=== PATIENT | male | born 1930 | race Caucasian/White ===

== ENCOUNTER → 2018-10-17 14:23 | Outpatient (CLI) | payer MEDICARE, OTHER | END | disposition home or self-care (01) | LOC: D.LAB 14:23 | PROVIDERS: ATTEND Urology | DX: N40.0 Benign prostatic hyperplasia without lower urinary tract symptoms (principal) ==

== ENCOUNTER 2018-11-15 05:35 | Day surgery (SDC) | payer MEDICARE, OTHER ==
--- NOTE | 2018-11-13 09:57 | NUR ---
DR. GARG NOTIFIED AND REVIEWED PT'S BEHAVIOR AND ASSESSMENT RESULTS. PT IS A LOW RISK PER DR. GARG. DR. GARG STATED TO GIVE RESOURCES TO PT AT TIME OF DISCHARGE. NO FURTHER ORDERS AT THIS TIME. RESOURCES REVIEWED WITH PT AND SHE VERBALIZED UNDERSTANDING.
[2018-11-13 10:30] LABS: BASOPHILS 0.5 % (0-2); EOSINOPHILS 5.9 % (0-7); HEMATOCRIT 37.2 % (42.0-54.0); HEMOGLOBIN 12.3 g/dL (13.5-17.5); IMMATURE GRANULOCYTES 0.2 % (0-5); LYMPHOCYTES 23.2 % (15-50); MCH 31.8 pg (26.0-34.0); MCHC 33.1 g/dL (31.0-37.0); MCV 96.1 fL (80.0-100.0); MEAN PLATELET VOLUME 10.5 fL (7.4-10.4); MONOCYTES 8.4 % (2-11); NEUTROPHILS 61.8 % (40-80); PLATELET COUNT 187 10x3/uL (130-400); RBC 3.87 10x6/uL (4.20-6.10); RDW 13.2 % (11.5-14.5); WBC 6.4 10x3/uL (4.8-10.8)
[2018-11-13 10:42] LABS: CALC OSMOLALITY 290 mosm/kg (275-300); CALCIUM 8.6 mg/dL (8.5-10.1); CARBON DIOXIDE 32.2 mmol/L (21.0-32.0); CHLORIDE - SERUM 107 mmol/L (98-107); GLUCOSE 164 mg/dL (74-106); POTASSIUM - SERUM 4.2 mmol/L (3.5-5.1); SODIUM 143 mmol/L (136-145); UREA NITROGEN 17 mg/dL (7-18); eGFR NON AFRICAN AMERICAN 75 mL/min (90-120)
[~2018-11-15] VITALS: Ht 167.6 cm; Wt 78.0 kg
[~2018-11-15 05:35] MED LIST: ACETAMINOPHEN500 M1 PO; AREDS; BAYER CHEWABLE81 MG PO; CALCIUM 500 +1 EAC3 PO; CENTRUM MEN'S1 EACH PO; CRESTOR10 MG PO; IMODIUM2 MG PO; LANOXIN125 MCG PO; OMEPRAZOLE40 MG PO; TOPROL XL50 MG PO; UROXATRAL10 MG PO; ZYRTEC10 MG PO
[2018-11-15 06:22] VITALS: BP 147/60; Ht 167.6 cm; Wt 78.0 kg
--- NOTE | 2018-11-15 08:50 | NUR ---
REC'D FROM RECOVERY. NO FAMILY AT BEDSIDE. AMBULATED TO BATHROOM AND VOIDED. FL DIET BROUGHT TO PATIENT. PATIENT IS GOING TO CALL HIS DAUGHTER FOR TRANSPORTATION.
--- NOTE | 2018-11-15 09:15 | NUR ---
DR HERNANDEZ SPOKE WITH PATIENT.
--- NOTE | 2018-11-15 09:20 | NUR ---
EATING FL DIET. NO C/O VOICED.
--- NOTE | 2018-11-15 09:25 | NUR ---
TOLERATED FL DIET. IV DC'D WITH CATHETER INTACT. WRITTEN AND VERBAL DC INSTRUCTIONS GIVEN TO PATIENT. VERBALIZED UNDERSTANDING. WAITING FOR RIDE TO GET HERE.
--- NOTE | 2018-11-15 10:05 | NUR ---
DC'D HOME WITH FAMILY VIA PRIVATE VEWHICLE. STABLE AT TIME OF DC.
--- NOTE | 2018-11-15 12:00 | OP ---
PATIENT NAME: ARACELY CAMPBELL MEDICAL RECORD: [id number] :[birth year] LOCATION:D.[facility] ADMISSION DATE: SURGEON: MARTÍNEZ HERNANDEZ MD DATE OF OPERATION: 11/15/2018 SURGEON: Martínez Hernandez MD ANESTHESIA: TIVA by Haily Mtz CRNA. DIAGNOSES: Elevated PSA of 40.53 on 10/17/2018. Bladder outlet obstruction. PROCEDURE: Cystoscopy, transrectal ultrasound, and prostate biopsy. FINDINGS: On cystoscopy, bilateral lateral lobe obstruction with no median lobe of the prostate. Heavily trabeculated bladder with no bladder tumors. Single ureteral orifices bilaterally. The transrectal ultrasound 44 gram prostate with intraprostatic stones and no hypoechoic areas. SPECIMENS: Prostate biopsy cores. BLOOD LOSS: None. CLINICAL HISTORY: This is an 88-year-old male, who was referred with bladder outlet obstruction symptoms and he wanted to have the UroLift procedure done. His IPPS score is 20 and quality of life score is 5 and he has been on Uroxatral for 10 years. He has not had a PSA level drawn in 6 years and I deneen a PSA level on him. It came back quite elevated at 40.53. On digital rectal examination, he has a small feeling prostate, but it is hard and irregularly nodular. He comes today for cystoscopy to evaluate the prostatic urethra and also for a prostate biopsy. He is not allergic to any medications. He was given Ancef utilization specialist to the OR. DESCRIPTION OF PROCEDURE: The patient was given IV sedation. He was then placed into the lithotomy position and prepped and draped. A 17-Occitan cystoscope with 30-degree lens was used for visualization. Findings are as outlined above. There are no penile urethral strictures. The bladder was then emptied through the cystoscope sheath and the scope was removed. The transrectal ultrasound probe was then introduced. We obtained prostate size measurements. The prostate is not very wide or long, but it is very tall. Overall, prostate size was estimated at 44 grams. Sextant biopsies were obtained with at least 3 cores from each sextant. Once all the specimens were obtained, the procedure was terminated. The patient was brought back to the recovery room. I will see him in followup next week to review the pathology results with him. TRANSINT:[id number] Voice Confirmation ID: [id number] DOCUMENT ID: [id number] OPERATIVE REPORT [id number] ARACELY CAMPBELL ROBERT S MD at 1200 CC: [id number] DICTATION DATE: 11/15/18816 CAKE WINDER: 11/15/18 1148 [facility] 11/15/18 [id number] [place] [address]
== END 2018-11-15 10:05 | disposition home or self-care (01) ==
LOC: D.OPS 05:35 → D.PAN 08:30 → D.OPS 09:30
PROVIDERS: Anesthesiology; ATTEND Urology
DX: N13.9 Obstructive and reflux uropathy, unspecified (principal); R97.20 Elevated prostate specific antigen [PSA]

== ENCOUNTER → 2018-11-26 08:03 | Outpatient (CLI) | payer MEDICARE, OTHER ==
[2018-11-15 06:22] VITALS: BMI 27.8
== END | disposition home or self-care (01) ==
LOC: D.NM 08:03
PROVIDERS: ATTEND Urology
DX: C61 Malignant neoplasm of prostate (principal)

== ENCOUNTER 2019-01-08 08:55 | Outpatient (CLI) | payer MEDICARE, OTHER ==
[~2019-01-08] VITALS: Ht 167.6 cm; Wt 73.9 kg
[2019-01-08 09:11] LABS: BASOPHILS 0.2 % (0-2); EOSINOPHILS 1.2 % (0-7); HEMATOCRIT 37.3 % (42.0-54.0); HEMOGLOBIN 12.8 g/dL (13.5-17.5); IMMATURE GRANULOCYTES 0.2 % (0-5); LYMPHOCYTES 16.8 % (15-50); MCH 32.2 pg (26.0-34.0); MCHC 34.3 g/dL (31.0-37.0); MEAN PLATELET VOLUME 10.8 fL (7.4-10.4); MONOCYTES 9.8 % (2-11); NEUTROPHILS 71.8 % (40-80); PLATELET COUNT 211 10x3/uL (130-400); RBC 3.97 10x6/uL (4.20-6.10); RDW 13.4 % (11.5-14.5); WBC 12.8 10x3/uL (4.8-10.8)
[2019-01-08 09:33] LABS: CALC OSMOLALITY 261 mosm/kg (275-300); CALCIUM 8.2 mg/dL (8.5-10.1); CARBON DIOXIDE 32.8 mmol/L (21.0-32.0); CHLORIDE - SERUM 104 mmol/L (98-107); POTASSIUM - SERUM 3.9 mmol/L (3.5-5.1); SODIUM 129 mmol/L (136-145); UREA NITROGEN 22 mg/dL (7-18); eGFR NON AFRICAN AMERICAN 75 mL/min (90-120)
[2019-01-08 09:34] LABS: GLUCOSE 96 mg/dL (74-106)
[2019-01-08 09:35] LABS: APTT 26.4 SECONDS (22.8-39.4)
[2019-01-08] MEDS ORDERED: PREDNISONE10 MG PO (09:48)
[2019-01-08] MEDS ORDERED: ZYTIGA250 MG PO (09:49)
[2019-01-08 09:53] VITALS: Ht 167.6 cm; Wt 73.9 kg
[2019-01-08 10:21] LABS: INR 0.94 (0.85-1.17); PROTIME 12.1 SECONDS (11.6-15.0)
--- NOTE | 2019-01-08 13:39 | NUR ---
VITAL SIGNS DOCUMENTED TO POST PROCEDURE CHART
--- NOTE | 2019-01-08 16:43 | NUR ---
1330 PCXR DONE AT BEDSIDE 1350 RECEIVED CALL FROM RADIOLOGY THAT PT HAS A SMALL PNEUMOTHORAX. PT IS TO REMAIN NPO AND A REPEAT PCXR TO BE REPEATED AT 1530. 1530 REPEAT PCXR DONE AT BEDSIDE 1550 ALMOND GRINDER HERE TO SEE PT. STATES THAT THERE IS SOME IMPROVEMENT IN PNEUMOTHORAX. OK TO DISCHARGE PT HOME PER DR GUZMÁN. PT IS AWARE THAT IF HE HAS CHEST PAIN OR SOB TO COME TO [facility] ED. PT VOICES UNDERSTANDING OF THIS INSTRUCTION. A FOLLOWUP CXR IS SCHEDULED FOR 01-10-19. PT STATES HE WILL RETURN FOR THIS XRAY. 1602 IV DC'D. CATHETER INTACT. PRESSURE APPLIED UNTIL BLEEDING CEASED. BANDAID APPLIED.
== END 2019-01-08 16:17 | disposition home or self-care (01) ==
LOC: D.CT 08:55
PROVIDERS: Radiology Diagnostic Radiology; ATTEND Internal Medicine Medical Oncology
DX: R91.8 Other nonspecific abnormal finding of lung field (principal)

== ENCOUNTER 2019-01-10 07:49 | Outpatient (CLI) | payer MEDICARE, OTHER ==
[~2019-01-10] VITALS: Ht 167.6 cm; Wt 75.0 kg
[~2019-01-10 07:49] MED LIST changes: +PREDNISONE10 MG PO; +ZYTIGA250 MG PO
--- NOTE | 2019-01-10 08:30 | NUR ---
PATIENT I&O CATH COMPLETE AND SENT TO LAB. TOLERATED WITH SMALL AMOUNT OF PAIN. IV INTACT. CALL LIGHT WITHIN REACH.
[2019-01-10 11:04] VITALS: BP 166/62; BMI 26.7
[2019-01-10 17:23] VITALS: BP 148/52
[2019-01-10 17:27] VITALS: Ht 167.6 cm; Wt 75.0 kg
--- NOTE | 2019-01-10 18:45 | NUR ---
PATIENT IN BED WITH IV INTACT. NO COMPLAINTS OR SIGNS OF DISTRESS. CALL LIGHTW ITHIN REACH. CT INTACT.
--- NOTE | 2019-01-10 18:45 | NUR ---
PATIENT IN BED WITH IV INTACT. NO COMPLAINTS OR SIGNS OF DISTRESS. EYES CLOSED RESTING QUIETLY. CALL LIGHTW ITHIN REACH.
--- NOTE | 2019-01-10 19:15 | NUR ---
PT ALERT AND ORIENTED WITH DAUGHTER AT BEDSIDE. PT INQUIRING SOON THIS NURSE ENTERED NEW ABOUT TIME FRAME OF ADMISSION. PT HAS CHEST TUBE WITH INSERTION TO TH LEFT UPPER SIDE. SUCTION IS ON AND MINIMAL FLUID NOTED DRAINING INTO CHAMBERS. LUNGS AUSCULTATED AND PRESENT WITH BILATERAL CLEAR UPPER LOBES AND DIMINSHED SOUNDS IN THE BILATERAL LOWER LOBES. PATIENT STATES THAT THE CHEST TUBE CAUSES AN "UNCOMFORTABLE" FEELING AT TIMES. DENIES FURTHER ISSUES. ASSISTED PATIENT TO BATHROOM. ULTIMATELY ABLE TO AMBULATE INDEPENDENTLY BUT ASSISTED WITH CHEST TUBE AND OXYGEN. NASAL CANNULA 2L AT THIS TIME. DENIES FURTHER ISSUES. CALL LIGHT IN REACH OF PATIENT. CPOC.
[2019-01-10 20:00] VITALS: BP 174/57
[2019-01-11] VITALS: BP 138/57
--- NOTE | 2019-01-11 03:00 | NUR ---
I have reviewed this patient and I concur with the Shift Assessment completed by the Licensed Practical Nurse today this shift.
[2019-01-11 04:00] VITALS: BP 133/64
--- NOTE | 2019-01-11 08:00 | NUR ---
PATIENT IN BED WITH IV INTACT. NO COMPLAINTS OR SIGNS OF DISTRESS. CT TO 20 CM SUCTION. CALL LIGHT WITHIN REACH.
[2019-01-11 08:55] VITALS: BP 157/59
[2019-01-11 12:52] VITALS: BP 131/62
--- NOTE | 2019-01-11 14:00 | NUR ---
PATIENT IN BED WITH IV INTACT. CT TO WATER SEAL. PATIENT HAS NO COMPLAINTS OR SIGNS OF DISTRESS. CALL LIGHT WITHIN REACH.
--- NOTE | 2019-01-11 16:30 | NUR ---
PATIENT IN BED WITH CT OUT. AWAITING DC. IV INTACT. NO COMPLAINTS OR SIGNS OF DISTRESS. CALL LIGHTW ITHIN REACH.
--- NOTE | 2019-01-11 17:30 | NUR ---
PATIENT RECIEVED DC INSTRUCTIONS. VERBALIZED UNDERSTANDING. NO QUESTIONS AT THIS TIME. IV REMOVED WITH CATH TIP INTACT. AWAITING WC FOR DC. CALL LIGHT WITHIN REACH.
== END 2019-01-11 17:45 | disposition home or self-care (01) ==
LOC: D.RAD 07:49 → D.MS 13:04 → D.RAD 01-11 17:45
PROVIDERS: ATTEND Radiology Diagnostic Radiology
DX: J93.9 Pneumothorax, unspecified (principal)

== ENCOUNTER 2019-01-25 08:19 | Day surgery (SDC) | payer MEDICARE, OTHER ==
[~2019-01-25] VITALS: Ht 167.6 cm; Wt 74.8 kg
[2019-01-25 08:31] LABS: BASOPHILS 0.2 % (0-2); HEMATOCRIT 36.4 % (42.0-54.0); HEMOGLOBIN 12.4 g/dL (13.5-17.5); IMMATURE GRANULOCYTES 0.2 % (0-5); LYMPHOCYTES 18.8 % (15-50); MCH 32.5 pg (26.0-34.0); MCHC 34.1 g/dL (31.0-37.0); MCV 95.5 fL (80.0-100.0); MEAN PLATELET VOLUME 10.9 fL (7.4-10.4); MONOCYTES 9.1 % (2-11); NEUTROPHILS 70.7 % (40-80); PLATELET COUNT 207 10x3/uL (130-400); RBC 3.81 10x6/uL (4.20-6.10); RDW 13.6 % (11.5-14.5); WBC 10.2 10x3/uL (4.8-10.8)
[2019-01-25 08:45] LABS: ANION GAP 7.5 mmol/L (8-16); CARBON DIOXIDE 34.8 mmol/L (21.0-32.0); CREATININE - SERUM 1.2 mg/dL (0.6-1.3); POTASSIUM - SERUM 4.3 mmol/L (3.5-5.1)
[2019-01-25 08:49] LABS: APTT 25.8 SECONDS (22.8-39.4); INR 0.91 (0.85-1.17); PROTIME 11.8 SECONDS (11.6-15.0)
[2019-01-25] MEDS ORDERED: XARELTO20 MG PO (10:08)
[2019-01-25] MEDS ORDERED: AMIODARONE HCL200 MG PO (10:11)
[2019-01-25 10:26] VITALS: BP 186/70; Ht 167.6 cm; Wt 74.8 kg
--- NOTE | 2019-01-25 12:42 | NUR ---
PT STATES HE "FEELS MUCH BETTER" AFTER RACEMIC EPINEPHRINE UPDRAFT
--- NOTE | 2019-02-18 11:31 | OP ---
PATIENT NAME: ARACELY CAMPBELL MEDICAL RECORD: [id number] :[birth year] [facility] DATE: SURGEON: HARSHAD OQUENDO MD DATE OF OPERATION: 01/25/2019 PREOPERATIVE DIAGNOSIS: Right base of tongue mass. POSTOPERATIVE DIAGNOSIS: Right base of tongue mass. PROCEDURES: Direct laryngoscopy and biopsy of the right base of tongue. SURGEON: Harshad Oquendo MD ANESTHESIA: General orotracheal. BLOOD LOSS: 2 cc. SPECIMENS: Multiple biopsies of right base of the tongue. COMPLICATIONS: None. DISPOSITION: Recovery, stable. DESCRIPTION OF PROCEDURE: He was brought to the operating room, placed in the supine position, sedated and intubated by anesthesia. The table was turned 90 degrees. Head drape was applied. He was positioned for endoscopy. Plastic tooth guard was used to protect his gums. He was edentulous. The oral cavity and oropharynx were examined using a headlight. The base of tongue was palpated. The mass on the base of tongue was still palpable there. A Kleinsasser J laryngoscope was inserted and used to evaluate the posterior pharyngeal wall, lateral pharyngeal wall, vallecula, base of tongue, supraglottic larynx, piriforms, postcricoid area, larynx, cords, subglottis, and upper trachea. Everything was normal except for the right base of the tongue. After passing over it with laryngoscope, that area was bleeding and a little bit friable. Mucosa did not look particularly abnormal. It was raised about 5 mm and 1.5 cm around. It was palpated under direct visualization and it was the same mass that was palpable on the base of the tongue. Then, using a 4-mm upbiting cup forceps, at least half a dozen biopsies were taken of most visible raised mass, beneath it was not particularly firm, felt relatively normal. There was very little bleeding. Laryngoscope was removed. Plastic tooth guard was removed. He was awakened, extubated, and transported to recovery in good condition. No complications. TRANSINT:[id number] Voice Confirmation ID: [id number] DOCUMENT ID: [id number] HARSHAD OQUENDO MD at 1131 CC: [id number] DICTATION DATE: 01/25/19 120 DIRECTOR CLOUD TRANSFORMATION: 01/25/19 1309 [facility] 01/25/19 [facility] [address] [place] [address]
--- NOTE | 2019-02-18 11:31 | HP ---
PATIENT: ARACELY HOPPER MEDICAL RECORD: [id number] ACCOUNT: [id number] [facility]ATION:[facility] : [birth year] ADMISSION DATE: 01/25/19 PCP: RIGO HERNANDEZ HISTORY AND PHYSICAL EXAMINATION HISTORY OF PRESENT ILLNESS: Mr. Hopper is an 88-year-old male who had a PET scan for prostate cancer, had a lesion right up on the right base of the tongue. On exam in the office, there is a corresponding mass in the right base of the tongue. He is being admitted for direct laryngoscopy and biopsy of right base of tongue. PAST MEDICAL HISTORY: Includes hypertension, AFib, prostate cancer. PAST SURGICAL HISTORY: Includes appendectomy, colon resection, prostate biopsy, esophageal procedure for reflux, possibly a Brenden fundoplication. CURRENT MEDICATIONS: Include Toprol, Crestor, digoxin, omeprazole, Xarelto, alfuzosin, and Zytiga. ALLERGIES: LISINOPRIL CAUSES COUGH. PHYSICAL EXAMINATION: GENERAL: He is healthy-appearing. FACE: Normal, symmetric, no lesions. EYES: Sclerae and conjunctivae are normal. EARS: Canals and TMs are normal. NOSE: No masses, polyps, or drainage. ORAL CAVITY AND OROPHARYNX: Normal to exam; however, can palpate a lump in the right base of the tongue. On laryngoscopy, I can also see the corresponding area. It was relatively smooth, not particularly exophytic, but is definitely raised, almost crescent shaped just above the right vallecula. NECK: No masses, no adenopathy. CHEST: Clear. CARDIOVASCULAR: Regular rate and rhythm, does not seem to be in AFib today. CHEST: Clear. IMPRESSION: Right base of the tongue mass. PLAN: Direct laryngoscopy, biopsy of the right base of the tongue. TRANSINT:[id number] Voice Confirmation ID: [id number] DOCUMENT ID: [id number] BESSIE PEREZ MD at 1131 CC: [id number] DICTATION DATE: 01/23/19 1101 FURNITURE UPHOLSTERER APPRENTICE: 01/23/19 1110 [facility] 01/25/19 [place] [address]
== END 2019-01-25 14:25 | disposition home or self-care (01) ==
LOC: D.OPS 08:19 → D.PAN 10:30 → D.OPS 10:30
PROVIDERS: Anesthesiology; ATTEND Otolaryngology
DX: C01 Malignant neoplasm of base of tongue (principal); Z01.812 Encounter for preprocedural laboratory examination

== ENCOUNTER → 2019-02-05 08:11 | Outpatient (CLI) | payer MEDICARE, OTHER ==
[2019-01-25 10:26] VITALS: BMI 26.7
[~2019-02-05 08:11] MED LIST changes: +AMIODARONE HCL200 MG PO; +XARELTO20 MG PO
== END | disposition home or self-care (01) ==
LOC: D.CT 08:11
PROVIDERS: ATTEND Internal Medicine Medical Oncology
DX: R91.1 Solitary pulmonary nodule (principal); C79.51 Secondary malignant neoplasm of bone; C61 Malignant neoplasm of prostate

== ENCOUNTER → 2019-03-20 21:26 | Outpatient (CLI) | payer MEDICARE, OTHER ==
[2019-01-25 10:26] VITALS: BMI 26.7
== END | disposition home or self-care (01) ==
LOC: D.LABREF 21:26
PROVIDERS: ATTEND Urology
DX: C61 Malignant neoplasm of prostate (principal)

== ENCOUNTER 2019-06-27 09:12 | Day surgery (SDC) | payer MEDICARE, OTHER ==
[2019-06-25 11:15] LABS: BASOPHILS 0.1 % (0-2); EOSINOPHILS 0.9 % (0-7); HEMOGLOBIN 11.9 g/dL (13.5-17.5); IMMATURE GRANULOCYTES 0.2 % (0-5); LYMPHOCYTES 6.7 % (15-50); MCH 32.5 pg (26.0-34.0); MCHC 32.2 g/dL (31.0-37.0); MCV 101.1 fL (80.0-100.0); MONOCYTES 7.7 % (2-11); NEUTROPHILS 84.4 % (40-80); PLATELET COUNT 233 10x3/uL (130-400); RBC 3.66 10x6/uL (4.20-6.10); RDW 14.3 % (11.5-14.5); WBC 9.7 10x3/uL (4.8-10.8)
[2019-06-25 11:24] LABS: CALC OSMOLALITY 285 mosm/kg (275-300); CALCIUM 8.8 mg/dL (8.5-10.1); CARBON DIOXIDE 35.7 mmol/L (21.0-32.0); CHLORIDE - SERUM 106 mmol/L (98-107); GLUCOSE 127 mg/dL (74-106); POTASSIUM - SERUM 4.3 mmol/L (3.5-5.1); SODIUM 142 mmol/L (136-145); UREA NITROGEN 15 mg/dL (7-18); eGFR NON AFRICAN AMERICAN 75 mL/min (90-120)
[2019-06-25 11:28] LABS: APTT 29.7 SECONDS (22.8-39.4); INR 0.9 (0.85-1.17); PROTIME 12.1 SECONDS (11.6-15.0)
[~2019-06-27] VITALS: Ht 167.6 cm; Wt 65.8 kg
[~2019-06-27 09:12] MED LIST changes: +FLOMAX0.4 MG PO; +MEDROL8 MG PO
[2019-06-27] MEDS ORDERED: ABIRATERONE (10:08)
[2019-06-27 10:09] VITALS: BP 150/63; Ht 167.6 cm; Wt 65.8 kg
--- NOTE | 2019-06-27 15:32 | OP ---
PATIENT NAME: ARACELY CAMPBELL MEDICAL RECORD: [id number] :[birth year] LOCATION:D[facility] ADMISSION DATE: SURGEON: SAMUEL HERNANDEZ MD DATE OF OPERATION: 06/27/2019 SURGEON: Samuel Hernandez MD ANESTHESIA: TIVA by Bryon Alvarado CRNA. 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 PSA 40.53. Transrectal ultrasound shows a 44 gram prostate. IPSS is 20 and quality of life score is 5 on Uroxatral. PROCEDURE: UroLift of time 6 units. Four units were placed in box configuration around the bladder neck and 2 at the verumontanum level. FINDINGS: Obstructive bladder neck and lateral lobes of the prostate. No median lobe. Single ureteral orifices bilaterally. No bladder tumors. Trabeculated bladder. BLOOD LOSS: Minimal. 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 This was found on prostate biopsy for an elevated PSA of 40.53. Metastatic testing was positive for metastasis to the bone. He also has a left upper lobe lung lesion. 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 The prostate cancer was treated with Eligard, Zytiga, prednisone, and Xgeva. His latest PSA is now less than 1. He continues to have obstructive voiding symptoms. He has been on Uroxatral, which has not really been helping his voiding symptoms. He comes now to have the UroLift procedure done for palliation to relieve his bladder outlet obstruction. He is allergic to BACTRIM, LISINOPRIL, and LOSARTAN. He was given Levaquin IV inspector final assembly conveyor line to the OR. DESCRIPTION OF PROCEDURE: The patient was given IV sedation. He was placed into lithotomy position and prepped and draped. The UroLift cystoscope was introduced and the findings are as outlined above. At 1.5 cm distal to the bladder neck at the anterolateral sulcus on each side, one unit was placed. I then placed 1 unit on each side at the anterolateral sulcus of the verumontanum level. Looking in with the obturator, there was still obstruction at the bladder neck. I placed 2 more units 1.5 cm distal to the bladder neck at the mid urethral level. This opened up the bladder neck in a box configuration. Placing the 6 units through the prostate cause a bit of bleeding. Therefore, I inserted a 16-Romanian Rush catheter into the bladder. The balloon was inflated with 10 cc of sterile water. This will be put to bag drainage. I will see the patient in followup next week to have the catheter removed for a voiding trial. TRANSINT:[id number] Voice Confirmation ID: [id number] DOCUMENT ID: [id number] OPERATIVE REPORT [id number] ARACELY CAMPBELL ROBERT S MD at 1532 CC: [id number] DICTATION DATE: 06/27/19 1105 MARKETING DEVELOPMENT SPECIALIST: 06/27/19 1446 [facility] 06/27/19 [facility] [address] [place] [address]
== END 2019-06-27 12:54 | disposition home or self-care (01) ==
LOC: D.OPS 09:12 → D.PAN 10:25 → D.OPS 10:45 → D.PAN 11:15 → D.OPS 11:15
PROVIDERS: Anesthesiology; ATTEND Urology
DX: C61 Malignant neoplasm of prostate (principal); N40.1 Benign prostatic hyperplasia with lower urinary tract symptoms; N13.8 Other obstructive and reflux uropathy; R97.21 Rising PSA following treatment for malignant neoplasm of prostate; C02.9 Malignant neoplasm of tongue, unspecified; I48.20 Chronic atrial fibrillation, unspecified

== ENCOUNTER 2019-07-31 14:39 | Emergency (ER) | payer MEDICARE, OTHER ==
[~2019-07-31] VITALS: Ht 167.6 cm; Wt 72.7 kg
[~2019-07-31 14:39] MED LIST changes: +ABIRATERONE
[2019-07-31 14:43] VITALS: Ht 167.6 cm; Wt 72.7 kg
[2019-07-31] MEDS ORDERED: XARELTO (14:44)
[2019-07-31 17:31] VITALS: BP 167/60
== END 2019-07-31 17:32 | disposition home or self-care (01) ==
LOC: D.ER 14:39
DX: S00.83XA Contusion of other part of head, initial encounter (principal); W19.XXXA Unspecified fall, initial encounter; Y93.9 Activity, unspecified; Y92.9 Unspecified place or not applicable; S00.81XA Abrasion of other part of head, initial encounter; I48.91 Unspecified atrial fibrillation; I10 Essential (primary) hypertension; I25.2 Old myocardial infarction

== ENCOUNTER 2019-12-25 10:09 | Inpatient (IN) | payer MEDICARE, OTHER ==
[2019-12-25] VITALS (7 sets, daily range): BP systolic 111–160; BP diastolic 55–68; Ht 167.6 cm; Wt 65.9 kg
[~2019-12-25] VITALS: Ht 167.6 cm; Wt 65.9 kg
[~2019-12-25 10:09] MED LIST changes: -ABIRATERONE; +ABIRATERONE PO; +XARELTO
[2019-12-25] MEDS ORDERED: EX-LAX MAXIMUM25 MG PO (10:27)
[2019-12-25 11:45] LABS: BASOPHILS 0 % (0-2); EOSINOPHILS 0.2 % (0-7); HEMOGLOBIN 10.1 g/dL (13.5-17.5); IMMATURE GRANULOCYTES 0.5 % (0-5); LYMPHOCYTES 3.1 % (15-50); MCH 33.9 pg (26.0-34.0); MCHC 31.6 g/dL (31.0-37.0); MCV 107.4 fL (80.0-100.0); MEAN PLATELET VOLUME 10.3 fL (7.4-10.4); NEUTROPHILS 88.2 % (40-80); PLATELET COUNT 189 10x3/uL (130-400); RBC 2.98 10x6/uL (4.20-6.10); RDW 13.5 % (11.5-14.5); WBC 13.1 10x3/uL (4.8-10.8)
[2019-12-25 12:06] LABS: APTT 30.6 SECONDS (22.8-39.4); INR 1.46 (0.85-1.17); PROTIME 17.6 SECONDS (11.6-15.0)
[2019-12-25 12:07] LABS: CALC OSMOLALITY 282 mosm/kg (275-300); CALCIUM 8.6 mg/dL (8.5-10.1); CARBON DIOXIDE 31.4 mmol/L (21.0-32.0); CHLORIDE - SERUM 103 mmol/L (98-107); GLUCOSE 166 mg/dL (74-106); POTASSIUM - SERUM 3.9 mmol/L (3.5-5.1); SODIUM 138 mmol/L (136-145); UREA NITROGEN 22 mg/dL (7-18); eGFR NON AFRICAN AMERICAN 75 mL/min (90-120)
[2019-12-25 12:13] LABS: ALBUMIN 2.7 g/dL (3.4-5.0); ALKALINE PHOSPHATASE 58 U/L (30-120); ALT (SGPT) 25 U/L (10-68); BILIRUBIN - TOTAL 0.32 mg/dL (0.2-1.3); PROTEIN - SERUM 5.8 g/dL (6.4-8.2)
--- NOTE | 2019-12-25 14:49 | NUR ---
PT TO FLOOR FROM ER. DRESSING TO HEAD IN PLACE. CHANGED PRIOR TO TRANSFER PER ER NURSE. DR WANG AT DOOR TO SEE PT.
[2019-12-25 15:23] LABS: % SATURATION 36 % (15-55); IRON 112 ug/dl (35-150); TOTAL IRON BIND CAPACITY 306 ug/dl (260-445); UNSAT IRON BIND CAPACITY 194 ug/dl (150-375)
[2019-12-25 18:24] LABS: BILIRUBIN NEGATIVE (NEGATIVE); GLUCOSE NEGATIVE (NEGATIVE); KETONE NEGATIVE (NEGATIVE); NITRITE NEGATIVE (NEGATIVE); SPECIFIC GRAVITY 1.015 (1.005-1.020); UROBILINOGEN NORMAL (NORMAL)
[2019-12-26] VITALS: BP 155/58
[2019-12-26 04:00] VITALS: BP 159/63
[2019-12-26 06:33] LABS: BASOPHILS 0 % (0-2); EOSINOPHILS 0 % (0-7); IMMATURE GRANULOCYTES 0.3 % (0-5); LYMPHOCYTES 3.5 % (15-50); MCH 34.1 pg (26.0-34.0); MCHC 32.3 g/dL (31.0-37.0); MCV 105.6 fL (80.0-100.0); MEAN PLATELET VOLUME 10.8 fL (7.4-10.4); MONOCYTES 3.2 % (2-11); RBC 2.14 10x6/uL (4.20-6.10); RDW 13.7 % (11.5-14.5); WBC 12.6 10x3/uL (4.8-10.8)
[2019-12-26 06:34] LABS: HEMATOCRIT 22.6 % (42.0-54.0); HEMOGLOBIN 7.3 g/dL (13.5-17.5); PLATELET COUNT 238 10x3/uL (130-400)
--- NOTE | 2019-12-26 07:16 | NUR ---
WALKING ROUNDS MADE PT SITTING UP IN BED, DRESSING SECURE TO HEAD, PT DENIES PAIN OR NEEDS, SALIN LOCK NOTED AND SECURE, SR UP X2 CALL LIGHT IN REACH, WILL CONTINUE TO MONITOR 0932 GAVE PT SCHEDULED MEDS, NO OTHER NEEDS VOICED 1405 STARTED PT FIRST UINT OF BLOOD, NO REACTION NOTED, 1700 STOPPED FIRST UINT OF BLOOD 1725 STARTED PT SECOND UNIT OF BLOOD, SITE CLEAR, PT DENIES PAIN OR NEEDS
[2019-12-26 07:57] LABS: ALBUMIN 2.7 g/dL (3.4-5.0); ALKALINE PHOSPHATASE 53 U/L (30-120); ALT (SGPT) 23 U/L (10-68); BILIRUBIN - TOTAL 0.36 mg/dL (0.2-1.3); CALC OSMOLALITY 281 mosm/kg (275-300); CALCIUM 8.4 mg/dL (8.5-10.1); CARBON DIOXIDE 31.4 mmol/L (21.0-32.0); CHLORIDE - SERUM 104 mmol/L (98-107); CREATININE - SERUM 0.9 mg/dL (0.6-1.3); GLUCOSE 175 mg/dL (74-106); POTASSIUM - SERUM 4.1 mmol/L (3.5-5.1); PROTEIN - SERUM 5.7 g/dL (6.4-8.2); SODIUM 138 mmol/L (136-145); UREA NITROGEN 19 mg/dL (7-18); eGFR NON AFRICAN AMERICAN 84 mL/min (90-120)
[2019-12-26 09:14] LABS: MAGNESIUM - SERUM 2.2 mg/dL (1.8-2.4); PHOSPHOROUS 3.4 mg/dL (2.5-4.9)
[2019-12-26 09:57] VITALS: BP 120/94
--- NOTE | 2019-12-26 19:00 | NUR ---
PT RESTING IN BED, WATCHING TV. HIS 2ND UNIT OF BLOOD IS TRANSFUSING. VSS. BED ALARM ON AND BED IS LOW. SIDE RAILS UP X 2. CALL LIGHT WITHIN REACH. PT DENIES NEEDS OR PAIN.
--- NOTE | 2019-12-26 21:00 | NUR ---
2ND UNIT OF BLOOD HAS FINISHED INFUSING. VSS. BED ALARM ON AND BED LOW. PT DENIES NEEDS OR PAIN.
[2019-12-26 22:51] LABS: HEMOGLOBIN 9.8 g/dL (13.5-17.5)
[2019-12-27] VITALS: BP 131/55
[2019-12-27 04:00] VITALS: BP 108/60
[2019-12-27 07:55] LABS: BASOPHILS 0 % (0-2); EOSINOPHILS 0 % (0-7); HEMATOCRIT 30.2 % (42.0-54.0); HEMOGLOBIN 9.9 g/dL (13.5-17.5); IMMATURE GRANULOCYTES 0.5 % (0-5); LYMPHOCYTES 3.4 % (15-50); MCH 32.7 pg (26.0-34.0); MCHC 32.8 g/dL (31.0-37.0); MEAN PLATELET VOLUME 10.7 fL (7.4-10.4); MONOCYTES 7.5 % (2-11); NEUTROPHILS 88.6 % (40-80); PLATELET COUNT 208 10x3/uL (130-400); RBC 3.03 10x6/uL (4.20-6.10); RDW 17.5 % (11.5-14.5); WBC 14.2 10x3/uL (4.8-10.8)
[2019-12-27 07:56] LABS: MCV 99.7 fL (80.0-100.0)
[2019-12-27 08:21] VITALS: BP 137/62
[2019-12-27 08:22] LABS: CALC OSMOLALITY 284 mosm/kg (275-300); CALCIUM 8.1 mg/dL (8.5-10.1); CARBON DIOXIDE 31.6 mmol/L (21.0-32.0); CHLORIDE - SERUM 105 mmol/L (98-107); CREATININE - SERUM 0.8 mg/dL (0.6-1.3); POTASSIUM - SERUM 3.9 mmol/L (3.5-5.1); SODIUM 141 mmol/L (136-145); UREA NITROGEN 20 mg/dL (7-18); eGFR NON AFRICAN AMERICAN > 90 mL/min (90-120)
[2019-12-27 08:26] LABS: GLUCOSE 115 mg/dL (74-106)
[2019-12-27 11:41] VITALS: BP 120/54
--- NOTE | 2019-12-27 15:14 | NUR ---
OT NOTE: (AM) PT COMPLETED SUPINE TO SIT WITH MOD/MAX A. PT COMPLETED EOB SITTING WITH SBA. PT COMPLETED SIT TO STAND WITH MIN A. PT COMPLETED ADL MOB WITH MIN/CGA. PT COMPLETED FACE HYGIENE WITH SBA. (PM) PT COMPLETED CRISTINO SOCK WITH SETUP. PT COMPLETED HAND HYGIENE WITH SETUP. PT COMPLETED BUE AROM EXS TOLERATED [id number];[phone] THANK YOU,JUDY CRESPO
[2019-12-27 16:33] VITALS: BP 141/53
--- NOTE | 2019-12-27 18:50 | NUR ---
REPORT RECEIVED, PT CARE ASSUMED. INTRODUCED SELF AND WROTE NAME ON BOARD. PT SITTING UP IN BED, WATCHING TV, AAOX4. DENIES ANY NEEDS AT THIS TIME. BED IN LOWEST, SR X2, CALL LIGHT AND URINAL WITHIN REACH. WILL CTM.
[2019-12-27 20:54] VITALS: BP 135/50
[2019-12-28 00:48] VITALS: BP 110/52
[2019-12-28 04:46] VITALS: BP 128/59
[2019-12-28 07:07] LABS: BASOPHILS 0.1 % (0-2); EOSINOPHILS 1.4 % (0-7); HEMATOCRIT 33.5 % (42.0-54.0); HEMOGLOBIN 10.7 g/dL (13.5-17.5); IMMATURE GRANULOCYTES 0.7 % (0-5); LYMPHOCYTES 10.9 % (15-50); MCH 32.5 pg (26.0-34.0); MCHC 31.9 g/dL (31.0-37.0); MEAN PLATELET VOLUME 10.7 fL (7.4-10.4); MONOCYTES 6.4 % (2-11); NEUTROPHILS 80.5 % (40-80); PLATELET COUNT 211 10x3/uL (130-400); RBC 3.29 10x6/uL (4.20-6.10); RDW 17.1 % (11.5-14.5)
[2019-12-28 07:11] LABS: MCV 101.8 fL (80.0-100.0)
[2019-12-28 07:12] LABS: CALC OSMOLALITY 283 mosm/kg (275-300); CALCIUM 8.1 mg/dL (8.5-10.1); CARBON DIOXIDE 29.4 mmol/L (21.0-32.0); CHLORIDE - SERUM 107 mmol/L (98-107); CREATININE - SERUM 0.9 mg/dL (0.6-1.3); GLUCOSE 83 mg/dL (74-106); POTASSIUM - SERUM 3.6 mmol/L (3.5-5.1); SODIUM 142 mmol/L (136-145); UREA NITROGEN 19 mg/dL (7-18); eGFR NON AFRICAN AMERICAN 84 mL/min (90-120)
--- NOTE | 2019-12-28 07:41 | NUR ---
PT SITTING UP IN BED. RR EVEN AND UNLABORED. PT STATES HE HAS NOT SEEN HIS DOCTOR IN A FEW DAYS AND IS VERY DISPLEASED. REASSURED THAT WE WOULD CALL HIM TODAY AND SEE IF HE WOULD COME SEE HIM. CALL LIGHT WITHIN REACH. BED IN LOWEST POSITION. WILL CONTINUE TO MONITOR.
[2019-12-28 09:41] VITALS: BP 117/50
[2019-12-28] MEDS ORDERED: TOPROL XL50 MG PO (10:51)
--- NOTE | 2019-12-28 13:40 | NUR ---
D/C INSTRUCTIONS REVIEWED WITH PT AND FAMILY MEMBER. IV D/C WITH CATHETER TIP INTACT. LEFT VIA WHEELCHAIR TO PERSONAL VEHICLE WITH ALL BELONGINGS.
--- NOTE | 2019-12-29 16:21 | MORECARE ---
CASE MANAGEMENT DISCHARGE SUMMARY PATIENT: ARACELY CAMPBELL UNIT: [id number] ADM DATE: 12/25/19 AGE: 89 : [birth year] SEX: M ROOM/BED: D.7941 AUTHOR: NENITA,DOC PHYSICIAN: REFERRING PHYSICIAN: ASHWINI WANG MD DATE OF SERVICE: 12/29/19 Discharge Plan Patient Name: ARACELY CAMPBELL Facility: [facility]:[place] : 1930 Planned Disposition: Home Anticipated Discharge Date: Discharge Date: 12/28/2019 Expected LOS: Initial Reviewer: [email or web address] Initial Review Date: 12/25/2019 Generated: 12/29/19 5:20 pm Comments DCP- Discharge Planning Updated by [email or web address]: Marian Domingo on 12/29/19 3:[address] LATE ENTRY 12/28/19 Patient Name: ARACELY CAMPBELL Admission Status: ER Accout number: [id number] Admission Date: 12-25-2019 : 1930 Admission Diagnosis:TRAUM SUBDR HEM W/O LOSS OF CONSCIOUSNESS, INIT Attending: ASHWINI TOBAR Current LOS: 3 Anticipated DC Date: Planned Disposition: Home Primary Insurance: MEDICARE A & B Discharge Planning Comments: CM met with patient to complete initial dc planning assessment. CM educated patient on the CM role and verbal consent given by patient to complete assessment. Patient lives at home alone. Patient is independent. At discharge patient plans to return home and feels this is a safe discharge. CM discussed availability of home health, rehab services, and medical equipment. Patient declined the need for HHS. Declination signed. CM gave a list of area HH agencies in case he would like their services at a later date. Patient will have family to transport home. Patient denied known discharge needs at this time. D/C IMM signed 12/28/19 @ 1202 CM will continue to follow and will assist as needed with dc plans/needs. Electrical Sign Servicer: Marian Domingo DCPIA - Discharge Planning Initial Assessment Updated by [email or web address]: Marian Domingo on 12/29/19 4:16 pm * Is the patient Alert and Oriented? Yes * How many steps to enter\exit or inside your home? * PCP TAMI * [facility] * Preadmission Environment Home Alone * ADLs Independent * Equipment Walker * Other Equipment STATES HE HAS A ROLLATOR ON ORDER * Verbal permission to speak to the caregivers and representatives has been obtained from the patient. N/A * Community resources currently utilized None * Additional services required to return to the preadmission environment? No * Can the patient safely return to the preadmission environment? Yes * Has this patient been hospitalized within the prior 30 days at any hospital? No Coverage Notice Reviewer: [email or web address] Domingo Notice Issued Date-Time: 12/28/2019 12:02 Notice Type: IM Discharge Notice Notice Delivered To: Patient Relationship to Patient: Self Speech Language Pathologist Assistant Name: Delivery Method: HAND - Hand Delivered Kaylin Days: Prior Verbal Notification: Recipient Understood Notice: Yes Recipient Signature: Yes Med Rec Note Co-signed by Attending: Coverage Notice Comment: Reviewer: [email or web address] Domingo Notice Issued Date-Time: 12/28/2019 12:02 Notice Type: Patient Choice Letter Notice Delivered To: Patient Relationship to Patient: Speech Language Pathologist Assistant Name: Delivery Method: HAND - Hand Delivered Kaylin Days: Prior Verbal Notification: Recipient Understood Notice: Yes Recipient Signature: Yes Med Rec Note Co-signed by Attending: Coverage Notice Comment: declined [facility] Patient Name: ARACELY CAMPBELL Page [phone] at 1621 All edits/amendments must be made on the electronic document DICTATION DATE: 12/29/191619 TRAFFIC EXPERT: MARLYN 12/29/19 1620 RPT#: [id number] DC DATE:12/28/19 STATUS: DIS IN [facility] [address] [place] [address] END OF REPORT
== END 2019-12-28 14:03 | disposition home or self-care (01) | DRG 85 ==
LOC: D.ER 10:09 → D.M2 12:20
PROVIDERS: Family Medicine; ADMIT Family Medicine; ATTEND Family Medicine
PROC: 0HQ0XZZ Repair Scalp Skin, External Approach (ICD-10-PCS; principal; 2019-12-25)
DX: S06.5X0A Traumatic subdural hemorrhage without loss of consciousness, initial encounter (principal); G93.6 Cerebral edema; C41.9 Malignant neoplasm of bone and articular cartilage, unspecified; C79.51 Secondary malignant neoplasm of bone; S01.01XA Laceration without foreign body of scalp, initial encounter; W19.XXXA Unspecified fall, initial encounter; S06.6X0A Traumatic subarachnoid hemorrhage without loss of consciousness, initial encounter; I25.10 Atherosclerotic heart disease of native coronary artery without angina pectoris; I48.91 Unspecified atrial fibrillation; Z79.01 Long term (current) use of anticoagulants; I10 Essential (primary) hypertension; D64.9 Anemia, unspecified

== ENCOUNTER 2019-12-31 09:30 | Emergency (ER) | payer MEDICARE, OTHER ==
[~2019-12-31] VITALS: Ht 167.6 cm; Wt 68.2 kg
[~2019-12-31 09:30] MED LIST changes: +EX-LAX MAXIMUM25 MG PO
[2019-12-31 09:34] VITALS: Ht 167.6 cm; Wt 68.2 kg
[2019-12-31 09:53] LABS: BASOPHILS 0 % (0-2); EOSINOPHILS 0.7 % (0-7); HEMATOCRIT 32.6 % (42.0-54.0); HEMOGLOBIN 10.7 g/dL (13.5-17.5); IMMATURE GRANULOCYTES 0.7 % (0-5); LYMPHOCYTES 7.4 % (15-50); MCH 33.2 pg (26.0-34.0); MCHC 32.8 g/dL (31.0-37.0); MCV 101.2 fL (80.0-100.0); MEAN PLATELET VOLUME 10.1 fL (7.4-10.4); MONOCYTES 8.4 % (2-11); NEUTROPHILS 82.8 % (40-80); PLATELET COUNT 174 10x3/uL (130-400); RBC 3.22 10x6/uL (4.20-6.10); RDW 15.6 % (11.5-14.5); WBC 7.7 10x3/uL (4.8-10.8)
[2019-12-31 10:02] LABS: CALC OSMOLALITY 274 mosm/kg (275-300); CALCIUM 7.9 mg/dL (8.5-10.1); CARBON DIOXIDE 29.7 mmol/L (21.0-32.0); CHLORIDE - SERUM 101 mmol/L (98-107); CREATININE - SERUM 0.9 mg/dL (0.6-1.3); GLUCOSE 119 mg/dL (74-106); INR 0.9 (0.85-1.17); POTASSIUM - SERUM 3.5 mmol/L (3.5-5.1); PROTIME 12.2 SECONDS (11.6-15.0); SODIUM 137 mmol/L (136-145); UREA NITROGEN 13 mg/dL (7-18); eGFR NON AFRICAN AMERICAN 84 mL/min (90-120)
[2019-12-31 10:08] LABS: ALBUMIN 2.7 g/dL (3.4-5.0); ALKALINE PHOSPHATASE 60 U/L (30-120); ALT (SGPT) 29 U/L (10-68); BILIRUBIN - TOTAL 0.63 mg/dL (0.2-1.3)
[2019-12-31 10:23] LABS: CKMB 2.5 U/L (0.0-3.6); CREATINE KINASE 83 UL (21-232); TROPONIN-I 0.036 ng/mL (0.000-0.060)
[2019-12-31] MEDS ORDERED: MECLIZINE HCL25 MG PO (11:26)
[2019-12-31 12:28] VITALS: BP 156/44
== END 2019-12-31 12:29 | disposition home or self-care (01) ==
LOC: D.ER 09:30
PROVIDERS: Family Medicine
DX: R42 Dizziness and giddiness (principal); R91.1 Solitary pulmonary nodule; R53.1 Weakness; I10 Essential (primary) hypertension